=== PATIENT | female | born 2000 | race Caucasian/White ===

== ENCOUNTER 2023-08-06 10:37 | Outpatient (CLI) | payer BC, SELFPAY ==
[2023-08-06 11:07] VITALS: PULSE 93; O2SAT 96
[2023-08-06 11:08] VITALS: RESP 16; TEMP 36.4
[2023-08-06 11:17] VITALS: BP 119/79; PULSE 88
--- NOTE | 2023-08-06 11:55 | PC.OBNST ---
NST Note NST Note Start: 08/06/23 11:09 Freq: ONCE Status: Active Protocol: Document 08/06/23 11:54 MMB (Rec: 08/06/23 11:55 MMB [id number]) NST Note 6 Para (# of births) 1 EDC 08/17/23 Gestational Age In Weeks & Days 38 Weeks & 3 Days High Risk Factors Diabetes - Gestational Diet Controlled Patient Presented with Complaint(s) of Decreased movement Reactive Yes Appropriate for Gestational Age Yes RN Melida Rivera RN Date 08/06/23 Reactive Yes Appropriate for Gestational Age Yes FILIPE Vazquez RN Date 08/06/23 OB NST charge Yes Complete NST Note via Write Note Yes The provider's electronic signature indicates the NST is reactive/appropriate for gestational age. *Note to provider: If an addendum is required, open the patient's chart and click on the note under the Nurse/Allied Health tab.
== END 2023-08-06 11:45 | disposition home or self-care (01) ==
LOC: OB OUT 10:50 → OB 10:56
PROVIDERS: PCP Physician Assistant Medical; Visit Provider Surgery
DX: O36.8130 Decreased fetal movements, third trimester, not applicable or unspecified (principal); Z3A.38 38 weeks gestation of pregnancy
CPT/HCPCS: 59025; G0463

== ENCOUNTER 2023-08-11 02:04 | Inpatient (IN) | payer BC, SELFPAY ==
[2023-08-11] VITALS (41 sets, daily range): BP systolic 92–162; BP diastolic 50–77; PULSE 65–94; RESP 15–17; TEMP 36.4–37; O2SAT 96–100; BMI 37.9
--- NOTE | 2023-08-11 02:46 | P.OBHP_ITS ---
OB - H&P: HPI Labor/Induction History of Present Illness Time Seen by Provider: 02:46 Date Seen: 08/11/23 Chief Complaint: The patient is a 22 year old 6 para 1 at 39 weeks gestation by 6wk US c/w LMP, who presents with contractions. Chief complaint: Maternity : 6 Para: 1 Date of last menstrual period: 11/10/22 Estimated date of delivery: 08/17/23 Gestational age based on last menstrual period: 39 Narrative: Mary Dozier is a 22 year old 6 para 1 at 39 weeks gestation by 6wk US c/w LMP, who presents with contractions. pt reports contractions started yesterday morning and were off and on all day. At midnight contractions significantly increased and were much more painful and regularly. No LOF/leaking. Reports she lost mucous plug around 10pm. Good FM. known diet controlled GDM diagnosed at 32 weeks with good glucose control since diagnosis. No recent cough or cold sxs. No headaches History of Present Dating criteria: based on LMP care: good care (initial care with Dr Kennedy, transferred to Dr Manley at 29 6/7wks) Ultrasounds: normal mid trimester US and other (06/27/23 EFW 65%, last week growth US EFW 7#11oz at that time) complications: gestational diabetes (diagnosed 32wks, diet controlled) Labs Blood type: O (+) positive Rubella: immune RPR/VDLR: nonreactive GBS status: negative HBsAG: negative Meds Home Medications and Allergies Home Medications Medication Instructions Recorded Confirmed Type citalopram 20 mg tablet (Celexa) 20 mg PO DAILY 08/06/23 08/11/23 History docosahexaenoic acid 200 mg 200 mg PO DAILY 08/06/23 08/11/23 History capsule ( DHA) ferrous sulfate 325 mg (65 mg 325 mg PO DAILY 08/06/23 08/11/23 History iron) tablet loratadine 10 mg tablet (Claritin) 10 mg PO DAILY 08/06/23 08/11/23 History trazodone 50 mg tablet 25 mg PO QPM PRN insomnia 08/06/23 08/11/23 History Allergies Allergy/AdvReac Type Severity Reaction Status Date / Time No Known Drug Allergies Allergy Verified 08/06/23 11:37 OB - H&P: Exam Physical Exam: Vital signs: Temp Pulse BP 97.7 F 73 109/69 08/11/23 02:16 08/11/23 02:16 08/11/23 02:16 Constitutional: Constitutional: no acute distress Comments: breathes through contractions, comfortable between contractions Routine HEENT Exam: Head: Present normal inspection Eye: Present normal appearance ENT: Present mucous membranes moist Routine Respiratory Exam: Respiratory: Present CTA bilaterally Routine Cardiovascular Exam: Cardiovascular: RRR Routine Abdominal Exam: Comments: gravid, c/w dates Detailed Labor and Delivery Exam: Patient Gravid: Yes Contraction frequency (min): 3 Tachysystole: No Fetus (Single): Amniotic Membrane Status: intact Heart Rate Baseline: 130 Monitor Accelerations: Present Monitor Decelerations: None Back Tender Fourdrinier Variability: Moderate (6-25) Routine Neurological Exam: Present alert and oriented X3 Routine Psychiatric Exam: Present normal affect and cooperative OB - Problem Based A/P Additional Plan (1) GDM (gestational diabetes mellitus): Status: Acute (2) Term : Status: Acute Plan Pt presents in active labor, GBS negative. Plan expectant management. GDM protocol Delivery/Labor/Induction Plan Plan: expectant management
[2023-08-11] MEDS: ROPIVACAINE 0.2% 100 ml 100 ML 12 MG EPIDURAL (04:04)
[2023-08-11] MEDS: LIDOCAINE 2% (PF) 5 ML VIAL EPIDURAL (04:04)
[2023-08-11] MEDS: LACTATED RINGERS 1000 ML 1,000 ML 125 ML IV (04:13)
[2023-08-11 04:27] LABS: Basophils Percent Auto 0.2 % (0.0-3.0); Eosinophils Percent Auto 0.3 % (0.0-7.0); Hematocrit 36.4 % (33.0-51.0); Hemoglobin* 12.1 gm/dL (12.0-16.0); Immature Granulocytes Pct Auto 1.1 %; Lymphocytes Percent Auto 18.4 % (20-44); Mean Corpuscular HGB Conc 33 gm/dL (32-36); Mean Corpuscular Hemoglobin 29 pg (26-34); Mean Corpuscular Volume 86 fL (80-100); Monocytes Percent Auto 6.3 % (0.0-11.0); Neutrophils Percent Auto 73.7 % (42.0-72.0); Platelet Count* 215 K/uL (140-440); RDW Coefficient of Variation % 13.8 % (11.5-15.5); Red Blood Count 4.24 m/uL (4.00-5.20); White Blood Count* 12.31 K/uL (4.50-11.00)
[2023-08-11 04:28] LABS: Slide Review Reflex No
--- NOTE | 2023-08-11 06:51 | P.OBPN_ITS ---
Subjective Time Seen by Provider: 06:51 Date Seen: 08/11/23 Narrative: pt received epidural earlier and is comfortable. Objective Vital Signs: Last Vital Signs Temp 97.7 F 08/11/23 02:16 Pulse 88 08/11/23 06:26 BP 92/54 L 08/11/23 06:26 Pulse Ox 99 08/11/23 04:20 Pelvic Exam Dilation (cm): 7 Effacement (%): 100 Station: +2 Comments: very stretchy Contractions Monitor mode: External Contraction Frequency: every 1-2min Contraction pattern: Regular Assessment Assessment: active labor Station: +2 Amniotic Membrane Status: AROM (with blood tinged fluid) Heart Rate Baseline: 140 Fretted String Instrument Repairer Variability: Moderate (6-25) Monitor Accelerations: Present Monitor Decelerations: None Plan Plan: Cervix remains 7cm but has come more mid position, now +2 and very stretchy. AROM with blood tinged fluid. Ashley palpated transverse position. Nursing will continue to work on position changes--has been using peanut ball. Discussed with pt. All ?'s answered.
--- NOTE | 2023-08-11 07:07 | P.ANBPRC_ITS ---
[facility] Medical History (Updated 08/11/23 @ 03:00 by Eulalia Manley DO) Pituitary tumor ?D49.7 - Neoplasm of unspecified behavior of endocrine glands and other parts of nervous system (ICD-10) Depressed ?F32.A - Depression, unspecified (ICD-10) Anxiety ?F41.9 - Anxiety disorder, unspecified (ICD-10) Surgical History (Updated 08/11/23 @ 02:57 by Eulalia Manley DO) Hx of tonsillectomy ?Z90.89 - Acquired absence of other organs (ICD-10) Social History What is your current living situation?: I presently have a place to live Problems where you live: no known problems In the past 12 months, utilities in danger of being shut off: no In past 12 months, lack of transportation kept you from medical appts, meetings, work, or getting things needed for daily living: no In the past 12 mos, have been you worried that your food would run out before you had money to buy more?: never true In the past 12 mos, the food you bought just didn't last and you didn't have money to buy more?: never true Smoking Status: Never smoker How often does anyone, including family, friends and others, physically hurt you : never How often does anyone, including family, friends and others, insult or talk down to you: never How often does anyone, including family, friends and others, threaten you with h arm: never How often does anyone, including family, friends and others, scream or curse at you: never Meds Home Medications and Allergies Home Medications Medication Instructions Recorded Confirmed Type citalopram 20 mg tablet (Celexa) 20 mg PO DAILY 08/06/23 08/11/23 History docosahexaenoic acid 200 mg 200 mg PO DAILY 08/06/23 08/11/23 History capsule ( DHA) ferrous sulfate 325 mg (65 mg 325 mg PO DAILY 08/06/23 08/11/23 History iron) tablet loratadine 10 mg tablet (Claritin) 10 mg PO DAILY 08/06/23 08/11/23 History trazodone 50 mg tablet 25 mg PO QPM PRN insomnia 08/06/23 08/11/23 History Allergies Allergy/AdvReac Type Severity Reaction Status Date / Time No Known Drug Allergies Allergy Verified 08/06/23 11:37 Results Labs Labs: Laboratory Results - last 24 hr 08/11/23 04:20 WBC 12.31 H RBC 4.24 Hgb 12.1 Hct 36.4 MCV 86 MCH 29 MCHC 33 RDW Coeff of Brett 13.8 Plt Count 215 Neut % (Auto) 73.7 H Lymph % (Auto) 18.4 L [place] % (Auto) 6.3 Eos % (Auto) 0.3 Baso % (Auto) 0.2 Neut # (Auto) 9.10 H Lymph # (Auto) 2.30 [place] # (Auto) 0.80 Eos # (Auto) 0.00 Baso # (Auto) 0.00 Abs Immat Gran (auto) 0.10 Imm/Tot Granulo (auto) 1.1 Blood Type O Positive Antibody Screen NEGATIVE Vital Signs Vital Signs: Last Vital Signs Temp 97.7 F 08/11/23 02:16 Pulse 68 08/11/23 06:57 BP 99/58 L 08/11/23 06:57 Pulse Ox 99 08/11/23 04:20 Weight: 106.594 kg Height: 167.64 cm Anesthesia Procedures Epidural Insertion Patient Location: OB Start Time: 03:45 Stop Time: 04:45 Start Date: 08/11/23 Stop Date: 08/11/23 Reason for Block: procedure for pain Patient Position: sitting Performed By: Charleen Downey Preanesthetic Checklist: IV checked, risks and benefits discussed, monitors and equipment checked, pre-op evaluation, timeout performed and anesthesia consent Prep: chlorhexidine gluconate Monitoring: blood pressure monitoring, continuous pulse oximetry and heart rate Approach: midline Vertebral Space: lumbar (1-5) Epidural Technique: GERONIMO saline Needle Type: Tuohy needle Injection Technique: continuous catheter (continuous catheter) Needle gauge: 17 Needle Length (cm): 10 cm Needle Insertion Depth (cm): 7 Catheter Gauge: 19 Catheter Type: multi-orifice Catheter at skin depth (cm): 15 Test Dose Result: negative and lidocaine 1.5% with epinephrine 1 to 200,000
[2023-08-11] MEDS: OXYTOCIN 30 unit/500 ML in NS 30 UNIT/500 ML BAG 300 UNIT IVPB (08:45)
--- NOTE | 2023-08-11 09:07 | W.PM.VAGDEL1 ---
Procedure Delivery date: 08/11/23 Procedure Done: Global Procedure Details: The patient is a 22 year-old admitted on 08/11/23 at 39 Weeks, 1 Days gestation for active labor.? Cervical exam on admission was 6 cm/90 % effaced/0 station with membranes intact in vertex presentation.? Contractions were every 2-4 minutes.? heart rate demonstrated baseline 130 bpm with moderate variability, + accelerations, - decelerations; a category 1 tracing.? Contractions continued to increase and patient requested and received epidural. AROM occurred at 0648 with blood tinged fluid and head at that time was found to be in OT position. ? Labor Analgesia:? Epidural ? Pitocin:? NO ? Labor onset:? 08/11/23 at 0000 ? Complete:? 07 ? Pushing:? 0737, initial pushing was ineffective and she had dense epidural so this was turned off. Patient then used mirror for last 2 pushes which was very effective and resulted in delivery. ? heart tones during second stage were 130's moderate variability, accels, no decels. ? At 0844 a viable female delivered in vertex OA presentation over intact perineum via spontaneous vaginal delivery.? Infant was placed on maternal abdomen.? Meconium fluid was noted at delivery. Cord was clamped and cut after a 60 second delay.? Nose and mouth were bulb suctioned.? weight pending.? 7 at 1 minute and 9 at 5 minutes.? Shoulder dystocia: no.? Nuchal cord: no. had meconium stool shortly after delivery. ? Placenta delivered spontaneously and complete at 0853 with a 3 vessel cord. ? Mother and infant were stable after delivery. ? Lacerations:? left small periurethral, hemostatic. 1st degree midline perineal, hemostatic. Not requiring repair ? Blood loss: 200 mL. Blood loss measurement type: EBL ? Sponge and needles counts are correct. Events: GDMA1 Intrapartal Events: None Delivery augmentation: rupture of membranes Delivery monitor: external FHT Route of delivery: Laceration description: Perineal - 1st Degree Estimated blood loss (mL): 200 Anesthesia type: Epidural Infant Infant Gender: Female presentation: vertex Placental Delivery Description: Spontaneous Cord Description: 3 Vessels
[2023-08-11] MEDS: ACETAMINOPHEN 500 MG TABLET 1000 MG PO (11:39)
[2023-08-11] MEDS: IBUPROFEN 600 MG TABLET PO ×2 (13:26→20:34)
--- NOTE | 2023-08-11 14:13 | PM.ANPOST ---
Post Anesthesia Note Post Anesthesia Note Patient seen: Inpatient Respiratory Status: adequate Cardiovascular Status: adequate Mental Status: baseline Pain: adequate Temp: baseline Anesthetic awareness: N/A Complications: none Follow care: none
[2023-08-11] MEDS: CALCIUM CARBONATE 500 MG CHEW PO (20:34)
[2023-08-11] MEDS: LANOLIN CREAM 1 APPLIC TOPICAL (21:03)
[2023-08-12 00:41] VITALS: BP 109/72; PULSE 71; RESP 18; TEMP 36.4; O2SAT 97
[2023-08-12] MEDS: ACETAMINOPHEN 500 MG TABLET 1000 MG PO (06:12)
[2023-08-12 06:16] VITALS: BP 117/82; PULSE 69; RESP 18; TEMP 36.5; O2SAT 99
[2023-08-12 06:37] LABS: Hemoglobin* 12.6 gm/dL (12.0-16.0)
[2023-08-12 09:10] VITALS: BP 115/75; PULSE 74; RESP 14; TEMP 36.4; O2SAT 99
--- NOTE | 2023-08-12 12:40 | P.DS_ITS ---
DS: Providers Provider Date Seen: 08/12/23 Date of admission: 08/11/23 02:04 Primary care physician: Jessa Dozier PA-C Admitting Clinician: Elualia Manley DO Attending Physician on discharge: Eulalia Manley DO Exam Const: Vital Signs, click to edit/add: Vital Signs - 24 hr 08/11/23 13:32 08/11/23 16:19 08/11/23 20:47 Temperature 98.1 F 97.6 F 97.6 F Pulse Rate [Pulse Oximeter] 77 80 70 Respiratory Rate 17 15 16 Blood Pressure [Ri ght Arm] 118/74 110/67 115/68 Pulse Oximetry 97 96 98 Oxygen Delivery Me thod Room Air Room Air Room Air 08/12/23 00:41 08/12/23 06:16 08/12/23 09:10 Temperature 97.5 F L 97.7 F 97.6 F Pulse Rate [Pulse Oximeter] 71 69 74 Respiratory Rate 18 18 14 Blood Pressure [Ri ght Arm] 109/72 117/82 115/75 Pulse Oximetry 97 99 99 Oxygen Delivery Me thod Room Air Room Air Room Air Common normals: no apparent distress General appearance: cooperative and comfortable Resp: Common normals: normal respiratory effort and clear to auscultation bilaterally Auscultation: clear to auscultation bilaterally Cardio: Common normals: regular rate, regular rhythm and no murmurs Rate: regular rate Rhythm: regular rhythm GI: Common normals: soft to palpation and non-tender Palpation: soft : Uterus: firm Extremity: Common normals: no pedal edema OB - DS: Summary Hospital Course Hospital Course: The patient is a 22 year old G 6 P 2 who delivered at 39.1 weeks gestation after being admitted to the Center on 08/11/23 for active labor. She had an uncomplicated vaginal delivery. She delivered a viable female infant. She had a first degree perineal laceration and a periurethral laceration, neither of which required repair. She is breast feeding. the patient has done well. course was notable for A1GDM; blood sugars have been appropriate post- . Peripartum Data Infant delivery method: Vaginal Episiotomy description: None complications: none Gender: Female Infant Discharge Plan: Home Time Spent with Patient Time attestation: Total time spent providing and/or coordinating discharge services: Time spent: Less than 30 minutes Discharge Plan Discharge Disposition: Home, Self-Care Date of Admission: 08/11/23 02:04 Primary Care Provider: Jessa Dozier Condition: Stable Anticipated Discharge Date/Time: 08/12/23 12:46 Discharge Medications: Continued citalopram [Celexa] 20 mg tablet 20 mg PO DAILY trazodone 50 mg tablet 25 mg PO QPM PRN (Reason: insomnia) ferrous sulfate 325 mg (65 mg iron) tablet 325 mg PO DAILY loratadine [Claritin] 10 mg tablet 10 mg PO DAILY DHA 200 mg capsule 200 mg PO DAILY Discharge Orders: Discharge Order (Routine); Ordered 08/12/23 Ordered By: Lizz Arora Patient Education: Your Baby (DC), Vaginal Delivery (DC) Follow Up Appointments: Jessa Dozier, PASarath[facility] [Primary Care Provider] - Forms: MyHealth Info Instructions Discharge Comments: Follow up in 6 weeks for routine post- visit
[2023-08-13 01:33] LABS: Rapid Plasma Reagin (RPR) Non Reactive (Non Reactive)
== END 2023-08-12 16:51 | disposition home or self-care (01) | DRG 560 ==
LOC: OB OUT 08-12 09:39 → OB 08-12 09:39
PROVIDERS: Admitting Provider Family Medicine; PCP Physician Assistant Medical; Visit Provider Family Medicine
DX: O24.420 Gestational diabetes mellitus in childbirth, diet controlled (principal); O70.0 First degree perineal laceration during delivery; Z3A.39 39 weeks gestation of pregnancy; Z37.0 Single live birth
CPT/HCPCS: 01967; 36415; 85018; 85025; 86592; 86850; 86900; 86901; G0463; A9270; J2371; J2795; J7120